=== PATIENT | female | born 1950 | race Hispanic/Latino ===

== ENCOUNTER → 2019-03-28 | Outpatient (CLI) | payer MEDICARE, OTHER ==
[~2019-03-28] MED LIST: IOHEXOL-350 50ML VIAL IV ONE
== END | disposition home or self-care (01) ==
LOC: RAH 09:11
PROVIDERS: ATTEND Internal Medicine Cardiovascular Disease
DX: I82.409 Acute embolism and thrombosis of unspecified deep veins of unspecified lower extremity (principal); R16.0 Hepatomegaly, not elsewhere classified
CPT/HCPCS: 75635; Q9967

== ENCOUNTER 2019-05-30 06:00 | Day surgery (SDC) | payer MEDICARE ==
[2019-05-28 11:22] LABS: BASOPHILS % (AUTO) 0.5 % (0.0-5.0); LYMPHOCYTES % (AUTO) 20.7 % (21.0-51.0); MEAN CORPUSCULAR HEMOGLOBIN 35.4 pg (27.0-33.0); MEAN CORPUSCULAR HGB CONC 35.3 g/dL (32.0-36.0); MEAN CORPUSCULAR VOLUME 100.2 fL (79-99); MONOCYTES % (AUTO) 10.9 % (3.0-13.0); NEUTROPHILS % (AUTO) 66.9 % (40.0-77.0); PLATELET COUNT (AUTO) 300 K/uL (130-400); RED CELL DISTRIBUTION WIDTH 12.6 % (11.0-15.5); WHITE BLOOD COUNT (AUTO) 8.6 K/uL (4.8-10.8)
[2019-05-28 11:26] LABS: APPEARANCE,URINE Clear (CLEAR); BILIRUBIN,URINE Negative (NEGATIVE); COLOR,URINE Yellow (YELLOW); GLUCOSE, URINE (UA) Negative (NEGATIVE); KETONES,URINE Negative (NEGATIVE); LEUKOCYTE ESTERASE ,URINE Negative (NEGATIVE); NITRATE,URINE Negative (NEGATIVE); OCCULT BLOOD,URINE Negative (NEGATIVE); PH,URINE 5.5 (5.0-8.0); PROTEIN,URINE Negative (NEGATIVE)
[2019-05-28 11:33] LABS: CREATININE 0.7 mg/dL (0.5-1.5); POTASSIUM 4.7 mmol/L (3.5-5.1)
[2019-05-28 11:45] VITALS: BP 156/61
[2019-05-28 11:47] LABS: INR 0.9 (0.85-1.15); PARTIAL THROMBOPLASTIN TIME 26.2 SEC (26.3-35.5); PROTHROMBIN TIME 9.5 SEC (9.6-11.6)
[~2019-05-30] VITALS: Ht 152.4 cm; Wt 43.9 kg
[2019-05-30] VITALS (11 sets, daily range): BP systolic 97–143; BP diastolic 41–64
[~2019-05-30 06:00] MED LIST changes: +BENA20TA10 PO; +BENTYL PO; +DEXL60CA3 PO; -IOHEXOL-350 50ML VIAL IV ONE; +METO25TA3 PO; +NICODERM TD
[2019-05-30] MEDS ORDERED: SODIUM CHLORIDE 0.9% 1000ML 1,000 ML IV SCH ×2 (08:00→10:07)
[2019-05-30] MEDS ORDERED: HEPARIN SODIUM 1000UNIT/ML 10ML VIAL ONE (08:31)
[2019-05-30] MEDS ORDERED: NITROGLYCERIN 5 MG/ML 10 ML VIAL IV ONE (08:31)
[2019-05-30] MEDS ORDERED: IODIXANOL 320 MG/ML 100 ML VIAL ONE (08:31)
[2019-05-30] MEDS ORDERED: LIDOCAINE HCL 2% 20ML ONE ×2 (08:32→09:13)
[2019-05-30] MEDS ORDERED: FENTANYL CITRATE PF 50 MCG/1 ML 2ML VIAL ONE ×2 (08:42→10:46)
[2019-05-30] MEDS ORDERED: MIDAZOLAM HCL 1 MG/ML 2ML VIAL ONE ×2 (08:42→09:05)
[2019-05-30] MEDS ORDERED: CLOPIDOGREL BISULFATE 300 MG TAB ONE ×2 (10:04→10:15)
[2019-05-30] MEDS ORDERED: ASPIRIN 81MG TAB.CHEW ONE (10:05)
[2019-05-30] MEDS ORDERED: GLUCAGON 1MG KIT 1 MG ML IM PRN (10:15)
[2019-05-30] MEDS ORDERED: HYDRALAZINE HCL 20 MG/ML VIAL IV PRN (10:15)
[2019-05-30] MEDS ORDERED: METOPROLOL TARTRATE 1 MG/ML 5ML VIAL IV PRN (10:15)
[2019-05-30] MEDS ORDERED: DEXTROSE 50%-WATER 50 ML DISP.SYRIN IV PRN (10:15)
[2019-05-30] MEDS ORDERED: CLOP75TA32 PO (10:18)
[2019-05-30] MEDS ORDERED: AEC81 PO (10:18)
[2019-05-30] MEDS ORDERED: HYDRALAZINE HCL 20 MG/ML VIAL ONE (10:43)
[2019-05-30] MEDS ORDERED: LORAZEPAM 2 MG/ML 1 ML VIAL IVP SCH (13:00)
[2019-05-30] MEDS ORDERED: MORPHINE SULFATE 2 MG/ML 1ML SYG IVP SCH (13:00)
--- NOTE | 2019-05-30 16:04 | NUR ---
GAVE PT DISCHARGE INFORMATION TO PATIENT AND TO DAUGHTER , NO CONCERNS VOICED, CHECK LEFT FEMORAL SITE BEFORE DISCHARGE NO EVIDENCE OF BLEEDING. DOCTOR MADHURI GAVE PT RX FOR PAIN DUE TO PT C/O OF PAIN , ALTHOUGH MORPHINE WAS ORDER FOR PT DURING STAY , PT REFUSED. PT WOULD REQUEST THAN WOULD REFUSE MEDICATIONS WHEN OFFERED , DAUGHTER AND PT GOING BACK [place] TO TAKE IT. ADVISED MD OF SITUATION. PT STABLE NO CONCERNS FROM NURSING POINT.
[2019-05-31] MEDS ORDERED: CLOPIDOGREL BISULFATE 75 MG TAB PO SCH (09:00)
== END 2019-05-30 16:04 | disposition home or self-care (01) ==
LOC: DAH 06:00
PROVIDERS: ATTEND Internal Medicine Cardiovascular Disease
DX: I70.213 Atherosclerosis of native arteries of extremities with intermittent claudication, bilateral legs (principal); I10 Essential (primary) hypertension; F17.210 Nicotine dependence, cigarettes, uncomplicated; Z79.899 Other long term (current) drug therapy; Z72.89 Other problems related to lifestyle; Z82.3 Family history of stroke; Z82.49 Family history of ischemic heart disease and other diseases of the circulatory system; Z82.5 Family history of asthma and other chronic lower respiratory diseases
CPT/HCPCS: 36415 ×2; 37221; 71045; 75630; 80048; 81003; 85025; 85347; 85610; 85730; 93005; A4215; A4216; A4221; A4222; A4223 ×3; A4606; C1725; C1769 ×2; C1874; C1894 ×2; J0360; J1644 ×2; J2250 ×2; J3010 ×2; J3490 ×3; J7030; Q9967; 75625; 75710; 99156; 99157